=== PATIENT | female | born 1980 ===

== ENCOUNTER 2018-10-30 05:18 | Day surgery (SDC) | payer OTHER ==
[~2018-10-30] VITALS: Ht 165.1 cm; Wt 56.7 kg
[2018-10-30] VITALS (11 sets, daily range): BP systolic 103–135; BP diastolic 67–85
[2018-10-30] MEDS ORDERED: IRON 100 PLUS1 EACH PO (06:09)
[2018-10-30] MEDS ORDERED: MULTIVITAMINS1 EAC2 ORAL (06:09)
[2018-10-30] MEDS ORDERED: Lidocaine 1% MPF 10mg/ml 5ml ONE (06:35)
[2018-10-30] MEDS ORDERED: Dexamethasone 4mg/ml vial ONE ×2 (06:35→07:12)
[2018-10-30] MEDS ORDERED: Sodium Chloride 10ml vial INJ ONE ×2 (06:35→06:40)
[2018-10-30] MEDS ORDERED: Propofol 200mg/20ml IV ONE (06:35)
[2018-10-30] MEDS ORDERED: Alfentanil 2ml Inj ONE (06:35)
[2018-10-30] MEDS ORDERED: Ketamine 500mg Inj ONE (06:36)
[2018-10-30] MEDS ORDERED: cefOXitin 1gm Inj ONE (06:39)
[2018-10-30] MEDS ORDERED: Lidocaine 1% Plain 30 ml INJ ONE (06:41)
[2018-10-30] MEDS ORDERED: LR 1000ml 1,000 ML IVLG SCH (06:44)
[2018-10-30] MEDS ORDERED: Atropine Sulfate 0.4mg/ml inj IVP PRN (06:45)
[2018-10-30] MEDS ORDERED: fentaNYL 100 mcg/2 mL IV PRN (06:45)
[2018-10-30] MEDS ORDERED: Meperidine 50mg/ml Inj(FOR RIGORS ONLY) IVP PRN (06:45)
[2018-10-30] MEDS ORDERED: Midazolam 2mg/2ml Inj IVP PRN (06:45)
[2018-10-30] MEDS ORDERED: oxyCODONE HCL/Acetaminophen 5/325mg ORAL PRN (06:45)
[2018-10-30] MEDS ORDERED: LORazepam Inj 2mg/ml 1ml IV PRN (06:45)
[2018-10-30] MEDS ORDERED: HYDROcodone/Acetamin 5/325 tab ORAL PRN (06:45)
[2018-10-30] MEDS ORDERED: Metoclopramide 10mg/2ml Inj IVP PRN (06:45)
[2018-10-30] MEDS ORDERED: DiphenhydrAMINE 50mg/ml Inj IVP PRN (06:45)
[2018-10-30] MEDS ORDERED: Ketorolac 30mg Inj IV PRN ×2 (06:45)
[2018-10-30] MEDS ORDERED: HYDROcodone/Acetamin 7.5/325 tab ORAL PRN (06:45)
[2018-10-30] MEDS ORDERED: Hydromorphone 0.5mg/0.5ml inj IVP PRN (06:45)
[2018-10-30] MEDS ORDERED: Labetalol 5mg/ml 20ml vial IV PRN (06:45)
--- NOTE | 2018-10-30 06:48 | Anethesia Preoperative Eval ---
Anesthesia Pre-op PMH/ROS General Date of Evaluation: Oct 30, 2018 Time of Evaluation: 07:19 Anesthesiologist: Cedric ASA Score: ASA 2 Mallampati Score Class I : Soft palate, uvula, fauces, pillars visible Class II: Soft palate, uvula, fauces visible Class III: Soft palate, base of uvula visible Class IV: Only hard plate visible Mallampati Classification: Class I Surgeon: Erica Diagnosis: Hemorrhoids Surgical Procedure: Hemorrhoidectomy with PPH stapler Anesthesia History: none Family History: no anesthesia problems Allergies: Coded Allergies: COCOA BUTTER (Verified Allergy, Mild, 10/30/18) SKIN RASH GLYCERIN (Verified Allergy, Mild, 10/30/18) SKIN RASH MINERAL OIL (Verified Allergy, Mild, 10/30/18) SKIN RASH PETROLATUM,WHITE (Verified Allergy, Mild, 10/30/18) SKIN RASH PHENYLEPHRINE (Verified Allergy, Mild, 10/30/18) SKIN RASH SHARK LIVER OIL (Verified Allergy, Mild, 10/30/18) SKIN RASH Medications: see eMAR Patient NPO?: Yes Past Medical History Gastrointestinal/Genitourinary: Reports: other - Hemorrhoids Hematology/Immune: Reports: anemia Anesthesia Pre-op Phys. Exam Physician Exam Last Vital Signs Date Time Temp Pulse Resp B/P (MAP) Pulse Ox O2 Delivery O2 Flow Rate FiO2 10/30/18 06:12 Room Air 10/30/18 06:10 97.6 57 20 103/72 100 Constitutional: NAD Neurologic: CN 2-12 intact Cardiovascular: RRR Respiratory: CTA Gastrointestinal: S/NT/ND Airway Exam Mallampati Score: Class I MO: full ROM: full Teeth: intact Anesthesia Pre-op A/P Labs Urine Test Test 10/30/18 05:35 Urine HCG, Qualitative Negative (NEGATIVE) Risk Assessment & Plan Assessment: ASA 2 Plan: GA, SED Status Change Before Surgery: No Pre-Antibiotics Dru Gram Cefoxitin IV Given Within 1 Hr of Incision: Yes Time Given: 07:29 Levy Steele MD Oct 30, 2018 06:48
--- NOTE | 2018-10-30 06:49 | Immediate Post-Op Evaluation ---
Immediate Post-Op Evalulation Immediate Post-Op Evalulation Procedure: Hemorrhoidectomy with PPH stapler Date of Evaluation: Oct 30, 2018 Time of Evaluation: 08:35 IV Fluids: 800 LR Blood Products: 0 Estimated Blood Loss: 25 Urinary Output: 0 Blood Pressure Systolic: 118 Blood Pressure Diastolic: 66 Pulse Rate: 89 Respiratory Rate: 16 O2 Sat by Pulse Oximetry: 100 Temperature (Fahrenheit): 98.4 Pain Score (1-10): 1 Nausea: No Vomiting: No Complications 0 Patient Status: awake, reacts, patent, none Hydration Status: adequate Dru Gram Cefoxitin IV Given Within 1 Hr of Incision: Yes Time Given: 07:29 Levy Steele MD Oct 30, 2018 06:49
--- NOTE | 2018-10-30 06:50 | 48 Hour Post Anesthesia Eval ---
Post Anesthesia Evaluation Procedure: Hemorrhoidectomy with PPH stapler Date of Evaluation: Oct 30, 2018 Time of Evaluation: 10:47 Blood Pressure Systolic: 108 0: 64 Pulse Rate: 67 Respiratory Rate: 18 Temperature (Fahrenheit): 98.6 O2 Sat by Pulse Oximetry: 100 Airway: patent Nausea: No Vomiting: No Pain Intensity: 1 Hydration Status: adequate Cardiopulmonary Status: Stable Mental Status/LOC: patient returned to baseline Follow-up Care/Observations: 0 Post-Anesthesia Complications: 0 Follow-up care needed: ready to discharge Levy Steele MD Oct 30, 2018 06:50
[2018-10-30] MEDS ORDERED: LR 1000ml ONE (07:00)
[2018-10-30] MEDS ORDERED: Sterile Water Irrig 1000ml IRRIG ONE (07:00)
[2018-10-30] MEDS ORDERED: NS Irrig 1000ml ONE (07:00)
--- NOTE | 2018-10-30 07:05 | Pre-Procedure Note/Attestation ---
Pre-Procedure Note/Attestation Complete Prior to Procedure Planned Procedure: not applicable Procedure Narrative: Procedure for prolapse and hemorrhoids with tag excision Indications for Procedure Pre-Operative Diagnosis: Hemorrhoids Attestation I attest that I discussed the nature of the procedure; its benefits; risks and complications; and alternatives (and the risks and benefits of such alternatives ), prior to the procedure, with the patient (or the patient's legal sales account representative). I attest that, if there was a reasonable possibility of needing a blood transfusion, the patient (or the patient's legal sales account representative) was given the [facility] standardized written summary, pursuant to the Silvio Magnus Blood Safety Act ([place] Health and Safety Code # 1645, as amended). I attest that I re-evaluated the patient just prior to the surgery and that there has been no change in the patient's H&P, except as documented below: Kaya Maldonado MD Oct 30, 2018 07:05
[2018-10-30] MEDS ORDERED: EPINEPHrine 1mg/1ml Amp ONE (07:12)
[2018-10-30] MEDS ORDERED: Ropivacaine 5mg/ml Vial 30ml INJ ONE ×2 (07:12→07:58)
[2018-10-30] MEDS ORDERED: Flumazenil 0.1mg/ml 5ml Inj IV ONE (07:48)
--- NOTE | 2018-10-30 17:00 | Operative Note - Dictated ---
DATE OF OPERATION: 10/30/2018 PREOPERATIVE DIAGNOSIS: Bleeding large internal hemorrhoids. POSTOPERATIVE DIAGNOSIS: Bleeding large internal hemorrhoids. PROCEDURE: Procedure for prolapse and hemorrhoids with surgical excision (PPH). SURGEON: Kaya Maldonado M.D. ANESTHESIOLOGIST: Levy Steele M.D. ANESTHESIA: Propofol sedation with local anesthetic. INDICATION FOR PROCEDURE: The patient is a 38-year-old [place] female, who was sent to my office by her contour path tape mill operator, Dr. Mandeep Kerns for colorectal surgical evaluation of large internal hemorrhoids. The patient also has been anemic and taking iron pills. The patient's last colonoscopy and upper endoscopy was done by Dr. Kerns in 2019, which showed large internal hemorrhoids. In light of the patient's anemia and findings, it was determined to proceed with a formal hemorrhoidectomy. PROCEDURE: Upon consent of the patient, the patient was brought to the operating room and placed in the prone vahe-knife position on the operating table. Once adequate sedation was started with propofol drip, the patient's buttocks were prepped and draped in usual surgical fashion. A 4 mL of 0.5% ropivacaine with epinephrine mixed with 80 mg of dexamethasone was used as a perianal and pudendal block. A Hill-Hankins retractor was placed into the anal canal. There were noted to be large circumferential internal hemorrhoids with large external redundant anal skin tags circumferentially. The dilator Ethicon PPH stapler was inserted and removed. The dilator with clear obturator was inserted and the clear obturator was held firmly to the buttocks and placed with the dilator was removed. A purse-string anoscope was inserted. A pursestring was created approximately 2 cm proximal to the dentate line using a 2-0 Monocryl pursestring suture. Upon completion of the pursestring, the anoscope was removed. The pursestring was tightened around the anvil of the 33 mm hemorrhoidal PPH Ethicon stapler. Attention was applied to the suture while gradually closing the stapler. The perianal skin was checked to make sure there is no involvement of the perianal skin. The vaginal wall was also checked both manually and visually to make sure there is no involvement of the vaginal wall. The stapler was then fired, opened, and withdrawn and there was noted to be a complete hemorrhoidal donut. This was passed off the field as a specimen. The anoscope was reinserted and any redundant remaining prolapsing hemorrhoids in the left posterior region and also in the anterior region were also excised in elliptical fashion and sent off along with the specimen. The mucosal defects were closed with a running 2-0 Vicryl suture. The anal canal was then irrigated and hemostasis was confirmed. Any bleeding areas along the staple line were ligated with a [id number] 2-0 Vicryl suture. The anal canal was then irrigated and hemostasis was confirmed. An ice pack was used for postoperative swelling. Sponge, needle, and instrument counts were correct at the end of the case. The patient was awakened from anesthesia and brought to the postanesthesia recovery room in stable condition. ESTIMATED BLOOD LOSS: Less than 5 mL. DRAINS: None. SPECIMEN: Hemorrhoidal donut. COMPLICATIONS: None. Kaya Maldonado M.D. DR: VALERIA JOB#: [id number] CC: Kaya Maldonado M.D.; Fax#: [phone] Sean Jasso M.D.
== END 2018-10-30 11:00 | disposition home or self-care (01) ==
LOC: SUR 05:18
DX: K64.8 Other hemorrhoids (principal); K64.4 Residual hemorrhoidal skin tags; Z88.8 Allergy status to other drugs, medicaments and biological substances
CPT/HCPCS: 46947; 81025; J0171; J0694; J1100; J1170; J1885; J2001; J2250; J2405; J2704; J2795; J3490; 94003; 94150